=== PATIENT | male | born 1990 | race Caucasian/White ===

== ENCOUNTER 2023-10-01 12:10 | Emergency (ER) | payer OTHER ==
[~2023-10-01] VITALS: Ht 188 cm; Wt 72.6 kg
[2023-10-01] MEDS ORDERED: Lidocaine 4% 1 Patch TOP ONE (16:10)
[2023-10-01] MEDS ORDERED: Ibuprofen 400 MG Tab PO ONE (16:10)
[2023-10-01] MEDS ORDERED: IBUP800 PO (16:26)
== END 2023-10-01 16:28 | disposition home or self-care (01) ==
LOC: ER 12:10
DX: S20.212A Contusion of left front wall of thorax, initial encounter (principal); S00.11XA Contusion of right eyelid and periocular area, initial encounter; W01.10XA Fall on same level from slipping, tripping and stumbling with subsequent striking against unspecified object, initial encounter
CPT/HCPCS: 71101; 99283-25; A9270